=== PATIENT | female | born 1995 | race Caucasian/White ===

== ENCOUNTER → 2019-10-15 16:42 | Outpatient (CLI) | payer OTHER, SELFPAY ==
--- NOTE | 2019-10-15 | DI.US.S_ITS ---
PROCEDURE: US OB <= 14 WEEKS FETUS INDICATIONS: INITIAL SIZING AND DATING OUTSIDE/PRIOR DATING DATA: Last menstrual period (LMP): 08/19/19. LMP-based estimated date of delivery (SHANEKA): 05/25/20. First dating scan (date and location): 10/15/19. Estimated date of delivery (SHANEKA) from first dating scan: 05/25/20. TECHNIQUE: Real-time scanning was performed of the fetus and maternal pelvic organs, with image documentation. Endovaginal scanning was also performed to better visualize the fetus and maternal ovaries. COMPARISON: None. FINDINGS: Embryo: Single living intrauterine fetus is present with a crown-rump length measuring 1.7 cm, 8 weeks one day. heart rate measures 173 beats per minute. Yolk sac visualized Measurement variability in dating: +/- 4 weeks by LMP, +/- 7 days by mean sac diameter (use before 6 weeks gestation if crown-rump length not able to be measured), +/- 5 days by crown-rump length (up to 8 weeks 6 days gestation), +/- 7 days by crown-rump length (up to 13 weeks 6 days gestation). Maternal organs: Ovaries unremarkable bilaterally. Limited images through the kidneys demonstrate no hydronephrosis. IMPRESSION: Single living intrauterine fetus with gestational age measuring 8 weeks one day corresponding to an SHANEKA of 05/25/20. Dictated by: Saúl Quan M.D. on 10/15/2019 at 18:39 Approved by: Saúl Quan M.D. on 10/15/2019 at 18:41
== END ==
PROVIDERS: Referring Provider Family Medicine; Visit Provider Family Medicine
DX: Z34.91 Encounter for supervision of normal pregnancy, unspecified, first trimester (principal); Z3A.08 8 weeks gestation of pregnancy
CPT/HCPCS: 76801

== ENCOUNTER → 2020-01-12 14:37 | Outpatient (CLI) | payer OTHER, SELFPAY ==
--- NOTE | 2020-01-12 | DI.US.S_ITS ---
PROCEDURE: US OB >= 14 WEEKS FETUS INDICATIONS: ANATOMY SCAN OUTSIDE/PRIOR DATING DATA: Last menstrual period (LMP): 08/19/2019. LMP-based estimated date of delivery (SHANEKA): 05/25/2020 . First dating scan (date and location): 10/15/2019 . Estimated date of delivery (SHANEKA) from first dating scan: 05/25/2020 . TECHNIQUE: Real-time scanning was performed of the fetus, with image documentation and biometric measurements. Endovaginal scanning: No COMPARISON: [facility], OB <= 14 WEEKS FETUS, 10/15/2019, 16:58. FINDINGS: General: A single living intrauterine gestation is present. Presentation: Vertex. Placenta: Placental position is posterior , without previa. Amniotic fluid index: 9.3 cm cm, normal range is 5-24 cm. heart rate: 153 beats per minute. Maternal cervical canal: 4.6 cm long. Normal lower limit is 2.5 cm. biometrics: Biparietal diameter: 21 weeks 1 day Head circumference: 21 weeks Abdominal circumference: 22 weeks 2 days Femur length: 21 weeks 4 days Estimated gestational age from initial scan: 20 weeks 6 days Composite gestational age from present scan: 21 weeks 4 days Estimated weight and percentile: 455 g; 91st percentile Measurement variability for biometric dating: +/- 7 days from 14 weeks to 15 weeks 6 days gestation, +/- 10 days from 16 weeks to 21 weeks 6 days gestation, +/- 2 weeks from 22 weeks to 27 weeks 6 days gestation, +/- 3 weeks for 28 weeks gestation or later. weight reference: 4500 g or EFW >90/95% is considered macrosomia or large for gestational age. EFW <10% is small for gestational age. EFW 5% or less is considered intra-uterine growth restriction. Anatomic survey: Neuro: Ventricles are non-dilated at less than 10 mm. Cisterna magna is normal at 3-11 mm. Cerebellum is normal in size and morphology. Nuchal skin fold: Normal at less than 6 mm between 14-21 weeks gestational age. Face: Nose and lips, facial profile are normal. Spine: No evidence for spina bifida. Heart: 4-chambered heart is present, with normal ventricular outflow tracts. Diaphragm: Diaphragm is intact. Stomach: Left-sided stomach is present. Kidneys: No hydronephrosis. Normal is less than 5 mm in 2nd trimester, less than 7 mm in 3rd trimester. Cord: 3-vessel cord has orthotopic insertion. Bladder: Normal in size. Extremities: All 4 extremities identified. IMPRESSION: 1. Single living IUP redemonstrated and interval growth is upper limits of normal. 2. Normal anatomic survey. Dictated by: Gen Boland [facility] Interpreted: Avery Lassiter MD on 01/12/2020 at 16:06 Approved by: Avery Lassiter M.D. on 01/12/2020 at 16:24
== END ==
PROVIDERS: Referring Provider Student in an Organized Health Care Education/Training Program; Visit Provider Student in an Organized Health Care Education/Training Program
DX: Z36.89 Encounter for other specified antenatal screening (principal); Z3A.21 21 weeks gestation of pregnancy
CPT/HCPCS: 76811

== ENCOUNTER → 2020-04-27 17:42 | Outpatient (ROUT) | payer OTHER, SELFPAY | PROVIDERS: Visit Provider Student in an Organized Health Care Education/Training Program | DX: Z34.00 Encounter for supervision of normal first pregnancy, unspecified trimester (principal) | CPT/HCPCS: 87081 ==

== ENCOUNTER → 2020-05-03 15:44 | Outpatient (CLI) | payer OTHER, SELFPAY ==
--- NOTE | 2020-05-03 | DI.US.S_ITS ---
PROCEDURE: US OB LIMITED INDICATIONS: GROWTH OUTSIDE/PRIOR DATING DATA: Last menstrual period (LMP): 08/19/2019. LMP-based estimated date of delivery (SHANEKA): 05/25/2020 . First dating scan (date and location): 10/15/2019 . Estimated date of delivery (SHANEKA) from first dating scan: 05/25/2020 . TECHNIQUE: Real-time scanning was performed of the fetus, with image documentation and biometric measurements. Endovaginal scanning: No COMPARISON: [facility], OB >= 14 WEEKS FETUS, 01/12/2020, 15:01. FINDINGS: General: A single living intrauterine gestation is present. Presentation: Vertex. Placenta: Placental position is posterior , without previa. Amniotic fluid index: 12.4 cm, normal range is 5-24 cm. heart rate: 145 beats per minute. Maternal cervical canal: 5.4 cm long. Normal lower limit is 2.5 cm. biometrics: Biparietal diameter: 37 weeks 5 days Head circumference: 38 weeks 1 day Abdominal circumference: 36 weeks 3 days Femur length: 36 weeks 4 days Estimated gestational age from initial scan: 36 weeks 6 days Composite gestational age from present scan: 37 weeks 2 days Estimated weight and percentile: 3044 g; 55th percentile Measurement variability for biometric dating: +/- 7 days from 14 weeks to 15 weeks 6 days gestation, +/- 10 days from 16 weeks to 21 weeks 6 days gestation, +/- 2 weeks from 22 weeks to 27 weeks 6 days gestation, +/- 3 weeks for 28 weeks gestation or later. weight reference: 4500 g or EFW >90/95% is considered macrosomia or large for gestational age. EFW <10% is small for gestational age. EFW 5% or less is considered intra-uterine growth restriction. Other: Not applicable. IMPRESSION: Single living IUP redemonstrated and interval growth is normal. Dictated by: Gen BETANCUR Interpreted: Janessa Velasquez MD on 05/03/2020 at 16:56 Approved by: Janessa Velasquez M.D. on 05/05/2020 at 9:15
[2020-05-03 16:22] LABS: Add Manual Diff / Slide Review NO; Basophils Absolute Auto 0 /uL (0-100); Basophils Percent Auto 0.2 % (0-2); Eosinophils Absolute Auto 100 /uL (0-450); Eosinophils Percent Auto 0.8 % (2-4); Hemoglobin 12.9 g/dL (12.0-16.0); Lymphocytes Absolute Auto 2200 /uL (1100-4500); Lymphocytes Percent Auto 20.4 % (25-40); Mean Corpuscular HGB Conc 32.9 % (30-36); Mean Corpuscular Hemoglobin 28.3 PG (26-34); Monocytes Absolute Auto 1000 /uL (0-900); Monocytes Percent Auto 9.1 % (3-14); Neutrophils Absolute Auto 7400 /uL (1500-7000); Neutrophils Percent Auto 69.5 % (50-75); Platelet Count 256 X10^3/uL (150-400); Red Blood Cell Count 4.54 X10^6/uL (4.0-5.2); Red Cell Distribution Width 14.4 % (11.6-14.8); White Blood Cell Count 10.7 X10^3/uL (4.5-11.0)
== END ==
PROVIDERS: PCP Student in an Organized Health Care Education/Training Program; Referring Provider Student in an Organized Health Care Education/Training Program; Visit Provider Student in an Organized Health Care Education/Training Program
DX: Z34.03 Encounter for supervision of normal first pregnancy, third trimester (principal); Z3A.37 37 weeks gestation of pregnancy
CPT/HCPCS: 36415; 76815; 85025

== ENCOUNTER 2020-05-09 18:53 | Outpatient (CLI) | payer OTHER, SELFPAY ==
--- NOTE | 2020-05-09 19:11 | DI.US.S_ITS ---
PROCEDURE: US OB BIOPHYSICAL PROFILE INDICATIONS: PRE-ECLAMPSIA OUTSIDE/PRIOR DATING DATA: Last menstrual period (LMP): 08/19/2019 . LMP-based estimated date of delivery (SHANEKA): 05/25/2020 . First dating scan (date and location): 10/15/2019 . Estimated date of delivery (SHANEKA) from first dating scan: 05/25/2020 . TECHNIQUE: Real-time scanning was performed of the fetus, with image documentation and biometric measurements. Biophysical profile was also obtained. COMPARISON: [facility], OB LIMITED, 05/03/2020, 16:16. [facility] OB >= 14 WEEKS FETUS, 01/12/2020, 15:01. [facility] OB <= 14 WEEKS FETUS, 10/15/2019, 16:58. FINDINGS: General: A single living intrauterine gestation is present. Presentation: Vertex. Placenta: Placental position is posterior , without previa. Amniotic fluid index: 15.4 cm, normal range is 5-24 cm. heart rate: 140 beats per minute. Maternal cervical canal: Not assessed biometrics: Estimated gestational age from initial scan: 37 weeks 5 days Biophysical profile: Tone: 2 points. Movement: 2 points. Respiration: 2 points. Largest pocket of fluid: 2 points. IMPRESSION: 1. Single live intrauterine with ultrasound gestational age of 37 weeks 5 days. 2. BPP 12/31 Dictated by: Rachel Leary M.D. on 05/09/2020 at 20:19 Approved by: Rachel Leary M.D. on 05/09/2020 at 20:21
[2020-05-09 19:37] LABS: Add Manual Diff / Slide Review NO; Basophils Absolute Auto 100 /uL (0-100); Basophils Percent Auto 0.6 % (0-2); Eosinophils Absolute Auto 100 /uL (0-450); Hematocrit 37.8 % (36-46); Hemoglobin 12.4 g/dL (12.0-16.0); Lymphocytes Absolute Auto 2400 /uL (1100-4500); Mean Corpuscular HGB Conc 32.8 % (30-36); Mean Corpuscular Hemoglobin 28.1 PG (26-34); Mean Corpuscular Volume 85.6 fL (80-100); Monocytes Absolute Auto 800 /uL (0-900); Monocytes Percent Auto 6.7 % (3-14); Neutrophils Absolute Auto 8000 /uL (1500-7000); Neutrophils Percent Auto 70.7 % (50-75); Platelet Count 276 X10^3/uL (150-400); Red Blood Cell Count 4.42 X10^6/uL (4.0-5.2); Red Cell Distribution Width 14.6 % (11.6-14.8); White Blood Cell Count 11.4 X10^3/uL (4.5-11.0)
[2020-05-09 19:48] LABS: Alanine Aminotransferase 13 IU/L (<35); Albumin 3.6 g/dL (3.5-5.0); Albumin Globulin Ratio 1.1 (1.0-2.8); Alkaline Phosphatase 176 U/L (38-126); Aspartate Aminotransferase 21 IU/L (14-36); Bilirubin Total 0.2 mg/dL (0.2-1.3); Blood Urea Nitrogen 13 mg/dL (7-17); Calcium 9.5 mg/dL (8.4-10.2); Carbon Dioxide 20 mmol/L (22-32); Chloride 106 mmol/L (98-107); Estimated Glomerular Filt Rate > 60.0 mL/min (>60); Globulin 3.2 g/dL (1.7-4.1); Glucose 112 mg/dL (70-100); HEMOLYSIS < 15 (0-50); Potassium 3.7 mmol/L (3.4-5.1); Sodium 135 mmol/L (137-145); Total Protein 6.8 g/dL (6.3-8.2); Uric Acid 5.2 mg/dL (2.5-6.2)
== END 2020-05-09 20:46 | disposition home or self-care (01) ==
LOC: OB 05-16 09:39
PROVIDERS: PCP Student in an Organized Health Care Education/Training Program; Referring Provider Student in an Organized Health Care Education/Training Program; Visit Provider Student in an Organized Health Care Education/Training Program
DX: O26.893 Other specified pregnancy related conditions, third trimester (principal); R42 Dizziness and giddiness; H53.8 Other visual disturbances; R03.0 Elevated blood-pressure reading, without diagnosis of hypertension; Z3A.37 37 weeks gestation of pregnancy
CPT/HCPCS: 36415; 59050; 76819; 80053; 82565; 84520; 84550; 85025; G0378; G0379

== ENCOUNTER 2020-05-15 12:17 | Outpatient (CLI) | payer OTHER, SELFPAY | END 2020-05-15 13:20 | disposition home or self-care (01) | LOC: LABOR 13:09 → OB 05-16 09:11 | PROVIDERS: PCP Student in an Organized Health Care Education/Training Program; Referring Provider Family Medicine; Visit Provider Family Medicine | DX: O26.893 Other specified pregnancy related conditions, third trimester (principal); R03.0 Elevated blood-pressure reading, without diagnosis of hypertension; Z3A.38 38 weeks gestation of pregnancy | CPT/HCPCS: 59025; G0378; G0379 ==

== ENCOUNTER → 2020-05-18 10:58 | Outpatient (CLI) | payer OTHER, SELFPAY ==
--- NOTE | 2020-05-18 | DI.US.S_ITS ---
PROCEDURE: US OB BIOPHYSICAL PROFILE INDICATIONS: OSVALDO OUTSIDE/PRIOR DATING DATA: Last menstrual period (LMP): 08/19/19. LMP-based estimated date of delivery (SHANEKA): 05/25/20 . First dating scan (date and location): 10/15/19 . Estimated date of delivery (SHANEKA) from first dating scan: 05/25/20 . TECHNIQUE: Real-time scanning was performed of the fetus for biophysical profile, with image documentation. Color and pulse Doppler interrogation was also performed of the umbilical artery near its insertion into the placenta. Endovaginal scanning: Not needed COMPARISON: [facility], OB BIOPHYSICAL PROFILE, 05/09/2020, 19:41. FINDINGS: General: A single living intrauterine gestation is present. Presentation: Vertex. Placenta: Placental position is posterior left. , without previa. Amniotic fluid index: 16.9 cm, normal range is 5-24 cm. heart rate: 158 beats per minute. Maternal cervical canal: Not visualized due to deep vertex presentation. Estimated gestational age from initial scan: 39 weeks 0 days . Biophysical profile: Tone: 2 points. Movement: 2 points. Respiration: 2 points. Largest pocket of fluid: To points. IMPRESSION: Normal amniotic fluid volume, normal biophysical profile. Delivery date is projected to be centered on 05/25/20. Vertex presentation. Dictated by: Jasmeet Reagan M.D. on 05/18/2020 at 12:33 Approved by: Jasmeet Reagan M.D. on 05/18/2020 at 12:35
[2020-05-18 11:17] LABS: Add Manual Diff / Slide Review NO; Basophils Absolute Auto 0 /uL (0-100); Basophils Percent Auto 0.4 % (0-2); Eosinophils Absolute Auto 100 /uL (0-450); Hematocrit 39.7 % (36-46); Hemoglobin 12.9 g/dL (12.0-16.0); Lymphocytes Absolute Auto 2200 /uL (1100-4500); Lymphocytes Percent Auto 19.9 % (25-40); Mean Corpuscular HGB Conc 32.5 % (30-36); Mean Corpuscular Hemoglobin 28.1 PG (26-34); Mean Corpuscular Volume 86.5 fL (80-100); Monocytes Absolute Auto 1000 /uL (0-900); Monocytes Percent Auto 8.7 % (3-14); Neutrophils Absolute Auto 7700 /uL (1500-7000); Platelet Count 240 X10^3/uL (150-400); Red Blood Cell Count 4.59 X10^6/uL (4.0-5.2)
[2020-05-18 11:29] LABS: Alanine Aminotransferase 11 IU/L (<35); Albumin 3.4 g/dL (3.5-5.0); Albumin Globulin Ratio 1.1 (1.0-2.8); Alkaline Phosphatase 195 U/L (38-126); Aspartate Aminotransferase 18 IU/L (14-36); BUN Creatinine Ratio 17.3 (6-22); Bilirubin Total 0.1 mg/dL (0.2-1.3); Blood Urea Nitrogen 14 mg/dL (7-17); Calcium 9.5 mg/dL (8.4-10.2); Carbon Dioxide 20 mmol/L (22-32); Chloride 109 mmol/L (98-107); Estimated Glomerular Filt Rate > 60.0 mL/min (>60); Glucose 98 mg/dL (70-100); HEMOLYSIS < 15 (0-50); Sodium 135 mmol/L (137-145); Total Protein 6.4 g/dL (6.3-8.2); Uric Acid 6.3 mg/dL (2.5-6.2)
[2020-05-18 15:21] LABS: Creatinine Urine Random 104.9 mg/dL; Protein (Total) Urine Random 14 mg/dL (0-12); Protein Creatinine Ratio Urine 0.13 GRAM/24H
== END ==
PROVIDERS: PCP Student in an Organized Health Care Education/Training Program; Referring Provider Student in an Organized Health Care Education/Training Program; Visit Provider Student in an Organized Health Care Education/Training Program
DX: Z34.93 Encounter for supervision of normal pregnancy, unspecified, third trimester (principal); Z3A.39 39 weeks gestation of pregnancy
CPT/HCPCS: 76819; 80053; 82570; 84156; 84550; 85025

== ENCOUNTER 2020-05-18 11:38 | Outpatient (CLI) | payer OTHER, SELFPAY | END 2020-05-18 13:10 | disposition home or self-care (01) | LOC: LABOR 12:26 → OB 05-22 12:04 | PROVIDERS: PCP Student in an Organized Health Care Education/Training Program; Referring Provider Student in an Organized Health Care Education/Training Program; Visit Provider Student in an Organized Health Care Education/Training Program | DX: O26.893 Other specified pregnancy related conditions, third trimester (principal); R03.0 Elevated blood-pressure reading, without diagnosis of hypertension; Z3A.39 39 weeks gestation of pregnancy | CPT/HCPCS: 59025; 59050; 76819; 80053; 82570; 84156; 84550; 85025; G0378; G0379 ==

== ENCOUNTER 2020-05-22 19:13 | Inpatient (IN) | payer OTHER, SELFPAY ==
[2020-05-22 19:43] VITALS: BP 132/83
[2020-05-22 20:05] LABS: Add Manual Diff / Slide Review NO; Basophils Absolute Auto 0 /uL (0-100); Basophils Percent Auto 0.4 % (0-2); Eosinophils Absolute Auto 100 /uL (0-450); Hematocrit 40.3 % (36-46); Lymphocytes Absolute Auto 2100 /uL (1100-4500); Lymphocytes Percent Auto 18.5 % (25-40); Mean Corpuscular HGB Conc 32.3 % (30-36); Mean Corpuscular Hemoglobin 27.9 PG (26-34); Mean Corpuscular Volume 86.6 fL (80-100); Monocytes Absolute Auto 900 /uL (0-900); Monocytes Percent Auto 7.7 % (3-14); Neutrophils Absolute Auto 8000 /uL (1500-7000); Neutrophils Percent Auto 72.4 % (50-75); Platelet Count 253 X10^3/uL (150-400); Red Blood Cell Count 4.65 X10^6/uL (4.0-5.2); Red Cell Distribution Width 15.2 % (11.6-14.8); White Blood Cell Count 11.1 X10^3/uL (4.5-11.0)
[2020-05-22 20:22] LABS: Alanine Aminotransferase 10 IU/L (<35); Albumin 3.7 g/dL (3.5-5.0); Albumin Globulin Ratio 1.1 (1.0-2.8); Alkaline Phosphatase 206 U/L (38-126); Aspartate Aminotransferase 17 IU/L (14-36); BUN Creatinine Ratio 16.3 (6-22); Bilirubin Total 0.1 mg/dL (0.2-1.3); Blood Urea Nitrogen 13 mg/dL (7-17); Calcium 9.3 mg/dL (8.4-10.2); Carbon Dioxide 26 mmol/L (22-32); Chloride 104 mmol/L (98-107); Estimated Glomerular Filt Rate > 60.0 mL/min (>60); Globulin 3.5 g/dL (1.7-4.1); Glucose 104 mg/dL (70-100); HEMOLYSIS < 15 (0-50); Potassium 3.8 mmol/L (3.4-5.1); Sodium 134 mmol/L (137-145); Total Protein 7.2 g/dL (6.3-8.2); Uric Acid 6.3 mg/dL (2.5-6.2)
[2020-05-22 20:27] LABS: COVID19 -Nasal RAPID Negative (Negative)
[2020-05-22] MEDS: miSOPROStoL 25 MCG TABLET 50 MCG PO (20:28)
[2020-05-22 20:29] LABS: Creatinine Urine Random 82.2 mg/dL; Protein (Total) Urine Random 14 mg/dL (0-12); Protein Creatinine Ratio Urine 0.17 GRAM/24H
[2020-05-22] MEDS: CALCIUM CARBONATE 500 MG TAB PO (22:07)
[2020-05-23] MEDS: miSOPROStoL 25 MCG TABLET 50 MCG PO (00:29)
[2020-05-23] MEDS: ZOLPIDEM 5 MG TABLET PO (00:33)
[2020-05-23] MEDS: LACTATED RINGERS 1,000 ML 100 ML IV (04:25)
[2020-05-23] MEDS: fentaNYL 100 MCG/2 ML INJ IV (04:30)
--- NOTE | 2020-05-23 06:21 | PM.OBHP.1 ---
OB HPI Date/Time Date of admission: 05/22/20 Date Patient Seen: 05/23/20 Time Patient Seen: 06:21 History of Present Condition Chief complaint: Induction Narrative: Danielle Harrison is a 25 year old female at 39w5d with SHANEKA of 05/25/20 per first trimester ultrasound. She presents for induction of labor secondary to gestational hypertension. Her course has been complicated by: 1. Nausea and vomiting that led to a 25 lb weight loss in the first 16 weeks. During the 2nd trimester her nausea completely resolved and by the 3rd trimester, she has had a rapid weight gain, putting on a total of 46.6 pounds, mostly in the last 11 weeks. Estimated weight at 36w6d was 3044 g, 55th percentile. 1 hour Glucola at 28 weeks was 100. 2. Gestational hypertension with a risk for preeclampsia starting at 37w5d, she has been followed closely and BPP and PIH labs x2 were reassuring. She did have a mild elevation in her uric acid at 6.3 but her protein to creatinine ratio was 0.17 at both checks in the last week. She denies headache, nausea, vomiting, right upper quadrant pain, or visual changes. She does have mild edema in her bilateral lower ankles, 1+ non-pitting. 3. Chronic depression with a risk for depression. Plan is to start SSRI after delivery if needed. LABS/IMAGING: ABO 0 positive, antibody negative on 10/29/2019. Rubella immune. Hepatitis-B surface antigen negative. HIV, HSV 1 and 2 negative. GC/chlamydia negative. Treponemal antibody negative. Varicella titer positive. Pap smear plus HPV DNA negative on 11/01/2019. Urine culture negative on 12/15/2019. Hemoglobin/hematocrit 13.6/39.4 on 10/29/2019. Repeat hemoglobin/hematocrit 13.0/40.3 on 05/22/2020. TSH within normal limits. 1 hour Glucola negative on 03/02/2020. GBS negative on 04/27/2020. NIPT negative, female. Dating US: 10/15/2019, 8w1d, SHANEKA 05/25/20 Anatomy Scan: 01/12/2028, 20w6d, normal, estimated weight 91st percentile Growth Scan: 05/03/20, 36w6d, 3044 g, 55th percentile BPP: 05/09/20, 37w5d, 12/31 BPP: 05/18/20, 39w0d, 12/31 OBSTETRIC HISTORY: GYNECOLOGICAL HISTORY: None PAST MEDICAL HISTORY: Depression PAST SURGICAL HISTORY: None FAMILY HISTORY: Parents are healthy. Sister has cerebral palsy, diagnosed in 2001, seizures. SOCIAL HISTORY: Engaged to Gallito Oliva, father of the baby, involved and supportive. She works at a dairy farm. Nonsmoker. No illicit drug use. No alcohol use during . Evaluation Evaluation Laboratory results: Laboratory Tests 05/22/20 05/22/20 05/22/20 19:00 19:15 19:56 WBC 11.1 H RBC 4.65 Hgb 13.0 Hct 40.3 MCV 86.6 MCH 27.9 MCHC 32.3 RDW 15.2 H Plt Count 253 Neut % (Auto) 72.4 Lymph % (Auto) 18.5 L [place] % (Auto) 7.7 Eos % (Auto) 1.0 L Baso % (Auto) 0.4 Neut # (Auto) 8000 H Lymph # (Auto) 2100 [place] # (Auto) 900 Eos # (Auto) 100 Baso # (Auto) 0 Sodium Potassium Chloride Carbon Dioxide BUN Creatinine Estimated GFR BUN/Creatinine Ratio Glucose Uric Acid Calcium Total Bilirubin AST ALT Alkaline Phosphatase Total Protein Albumin Globulin Albumin/Globulin Ratio U Random Total Protein 14 H Urine Creatinine 82.2 Protein/Creatinin Ratio 0.17 COVID-19 PCR Negative Blood Type Antibody Screen 05/22/20 05/22/20 19:56 19:56 WBC RBC Hgb Hct MCV MCH MCHC RDW Plt Count Neut % (Auto) Lymph % (Auto) [place] % (Auto) Eos % (Auto) Baso % (Auto) Neut # (Auto) Lymph # (Auto) [place] # (Auto) Eos # (Auto) Baso # (Auto) Sodium 134 L Potassium 3.8 Chloride 104 Carbon Dioxide 26 BUN 13 Creatinine 0.80 Estimated GFR > 60.0 BUN/Creatinine Ratio 16.3 Glucose 104 H Uric Acid 6.3 H Calcium 9.3 Total Bilirubin 0.1 L AST 17 ALT 10 Alkaline Phosphatase 206 H Total Protein 7.2 Albumin 3.7 Globulin 3.5 Albumin/Globulin Ratio 1.1 U Random Total Protein Urine Creatinine Protein/Creatinin Ratio COVID-19 PCR Blood Type O Positive Antibody Screen Negative PFSH Social History Smoking Status: Never smoker Meds Home Medications and Allergies Allergies Allergy/AdvReac Type Severity Reaction Status Date / Time acetaminophen [From Tylenol] Allergy Verified 05/22/20 20:18 Review of Systems Review of Systems ROS: Yes All systems reviewed with the patient and are negative except as otherwise documented Exam Narrative Exam Narrative: General: NAD Skin: Color unremarkable, no rash nor lesions HEENT: Neck supple with midline trachea Lungs: CTAB Heart: Normal rate, and regular rhythm, S1, S2 normal, no murmur, click, rub or gallop Abdomen: Gravid, soft, non-tender Extremities: 1+ non-pitting edema in bilateral ankles, no clubbing or cyanosis Pelvis: Normal female external genitalia Presentation: vertex Cervix: 10/100/+1, AROM, light meconium Monitoring: Variability: Moderate Baseline: 140s Accelerations: Present Decelerations: Absent Contractions: Every 2 minutes Strength: Moderate Objective Labs Result Diagrams: 05/22/20 19:56 05/22/20 19:56 Labs: Laboratory Results - last 24 hr 05/22/20 05/22/20 05/22/20 19:00 19:15 19:56 WBC 11.1 H RBC 4.65 Hgb 13.0 Hct 40.3 MCV 86.6 MCH 27.9 MCHC 32.3 RDW 15.2 H Plt Count 253 Neut % (Auto) 72.4 Lymph % (Auto) 18.5 L [place] % (Auto) 7.7 Eos % (Auto) 1.0 L Baso % (Auto) 0.4 Neut # (Auto) 8000 H Lymph # (Auto) 2100 [place] # (Auto) 900 Eos # (Auto) 100 Baso # (Auto) 0 Sodium Potassium Chloride Carbon Dioxide BUN Creatinine Estimated GFR BUN/Creatinine Ratio Glucose Uric Acid Calcium Total Bilirubin AST ALT Alkaline Phosphatase Total Protein Albumin Globulin Albumin/Globulin Ratio U Random Total Protein 14 H Urine Creatinine 82.2 Protein/Creatinin Ratio 0.17 COVID-19 PCR Negative Blood Type Antibody Screen 05/22/20 05/22/20 19:56 19:56 WBC RBC Hgb Hct MCV MCH MCHC RDW Plt Count Neut % (Auto) Lymph % (Auto) [place] % (Auto) Eos % (Auto) Baso % (Auto) Neut # (Auto) Lymph # (Auto) [place] # (Auto) Eos # (Auto) Baso # (Auto) Sodium 134 L Potassium 3.8 Chloride 104 Carbon Dioxide 26 BUN 13 Creatinine 0.80 Estimated GFR > 60.0 BUN/Creatinine Ratio 16.3 Glucose 104 H Uric Acid 6.3 H Calcium 9.3 Total Bilirubin 0.1 L AST 17 ALT 10 Alkaline Phosphatase 206 H Total Protein 7.2 Albumin 3.7 Globulin 3.5 Albumin/Globulin Ratio 1.1 U Random Total Protein Urine Creatinine Protein/Creatinin Ratio COVID-19 PCR Blood Type O Positive Antibody Screen Negative Assessment and Plan Assessment and Plan Assessment and Plan narrative: 1. IUP at 39w5d 2. 3. Gestational hypertension 4. Chronic depression 5. Active labor Plan: Admission for induction of labor with routine orders. Has been on cytotec overnight, 2 doses, has since been ami on her own, now complete. Anticipate vaginal delivery. Questions answered, appropriate consents will be signed.
[2020-05-23] MEDS: ONDANSETRON 4 MG/2 ML INJ IV (07:00)
[2020-05-23] MEDS: OXYTOCIN PREMIX 30 UNIT/500 ML PLAST..BAG IV (08:34)
[2020-05-23 09:44] VITALS: BP 128/78; PULSE 70; RESP 16; TEMP 37
--- NOTE | 2020-05-23 10:32 | PM.OBPRVD ---
Events: Induced HTN and Labor Induction Labor & Delivery Delivery date: 05/23/20 Cervical ripening method: per misoprostal protocol Delivery augmentation: rupture of membranes (thin meconium) and pitocin Delivery monitor: external FHT Route of delivery: L&D Laceration Description: Perineal - 2nd Degree Delivery repair: vicryl (3.0, usual fashion) Estimated blood loss (mL): 250 Anesthesia Type: Epidural Complications: None Narrative: On 05/22/20, this 25 year old , GBS negative female, was admitted overnight for cervical ripening and progressed quickly to complete after just 2 doses of Cytotec. On 05/23/20, under epidural anesthesia, she delivered a viable female infant with unknown weight and scores of 9/9. Delivery was via normal spontaneous vaginal delivery at 9:42 a.m. Pitocin was used during the 2nd stage of labor for augmentation of contractions. A loose Nuchal cord x 1 was reduced. Cord clamped and cut and infant handed to mother. Cord blood sent for analysis. Intact placenta with three-vessel cord was delivered spontaneously at 10:10 a.m.. IV Pitocin administered in bolus dose. Uterus, cervix, vagina, and rectum explored and found to be intact except for a second-degree perineal laceration that was repaired with 3-0 Vicryl in the usual fashion. Estimated blood loss 250 cc. Patient remained in the delivery room in stable condition. Infant remained in the delivery room in stable condition. Plan for aftercare: Routine care.
[2020-05-23] MEDS: DERMOPLAST SPRAY 20% 60 ML 1 SPRAY TOP (14:42)
[2020-05-23] MEDS: KETOROLAC 30 MG/ML VIAL IV ×2 (14:52→20:58)
[2020-05-24] MEDS: KETOROLAC 30 MG/ML VIAL IV (03:01)
[2020-05-24 07:14] LABS: Hematocrit 33.8 % (36-46); Hemoglobin 11.1 g/dL (12.0-16.0)
--- NOTE | 2020-05-24 13:29 | P.DS_ITS ---
Discharge Providers Provider Date of admission: 05/22/20 19:13 Discharge Date: 05/24/20 Primary care physician: Gaby Torres MD Consults: 05/24/20 10:35 Consult to [employer] Routine Comment: Discharge provider: Gaby Torres MD Summary Hospital Course Date Patient Seen: 05/24/20 Time Patient Seen: 13:52 Procedures: 1. at 39w5d, Gaby Torres MD, no complications 2. Epidural at 39wd, Roseline Huerta MD, no complications Hospital Course: Unremarkable. Mother is with nipple shield. Tolerating full diet with no nausea vomiting. Ambulating well. Lochia less than menses. On day of discharge, she is afebrile with stable vital signs throughout. Discharge diagnoses: 1. 25 yo 2. Status post at 39w5d 3. Gestational hypertension, resolved 4. Chronic depression Status at Discharge Cognitive/behavioral status at discharge: at baseline, oriented Overall status at discharge: patient is progressing back to baseline Time Spent with Patient Time attestation: Total time spent providing and/or coordinating discharge services: 35 Objective Labs Result Diagrams: 05/24/20 07:05 05/22/20 19:56 Labs: Laboratory Results - last 24 hr 05/24/20 07:05 Hgb 11.1 L Hct 33.8 L Exam Narrative Exam Narrative: General: NAD Skin: Color unremarkable, no rash nor lesions HEENT: Neck supple with midline trachea Lungs: CTAB Heart: Normal rate and regular rhythm, S1, S2 normal, no murmurs, click, rub or gallop Abdomen: FF, U-1, soft, non-tender, +BS Extremities: No edema, no cyanosis Discharge Plan Discharge Plan Patient Disposition: Home Discharge orders & Medications Prescriptions: New ibuprofen 600 mg Tablet 600 mg PO Q6HR PRN (Reason: Pain, Mild (1-3)) 30 Days Qty: 45 RF: 2 Prenatabs Rx 29 mg iron- 1 mg Tablet 1 tab PO DAILY Qty: 90 RF: 3 No Action No Known Home Medications RF: 0 Follow up/Referrals: Gaby Torres MD [Primary Care Provider] - (Appointment Wednesday, May 31; check in time 10:00 AM.) Diet/Activity/Treatments Diet: Diet as Tolerated Activity: 1. Routine care 2. No driving for 2 weeks. 3. Call or return for uncontrolled pain, fever, intractable nausea or vomiting, trouble with urination, heavy vaginal bleeding greater than 1 pad per hour, suicidal/homicidal thoughts, signs or symptoms of infection, or any other concerns. Skin/Wound/Dressing Care Report to your healthcare provider any signs of infection, such as:: chills, fever and increased pain Visit Report/Discharge Packet Instructions: DI for Labor and Delivery, Vaginal Discharge Data Primary Care Provider: Gaby Torres
== END 2020-05-24 14:50 | disposition home or self-care (01) | DRG 807 ==
PROVIDERS: Admitting Provider Student in an Organized Health Care Education/Training Program; PCP Student in an Organized Health Care Education/Training Program; Referring Provider Student in an Organized Health Care Education/Training Program; Visit Provider Student in an Organized Health Care Education/Training Program
DX: O13.4 Gestational [pregnancy-induced] hypertension without significant proteinuria, complicating childbirth (principal); Z37.0 Single live birth; O70.1 Second degree perineal laceration during delivery; O77.0 Labor and delivery complicated by meconium in amniotic fluid; O69.81X0 Labor and delivery complicated by cord around neck, without compression, not applicable or unspecified; Z3A.39 39 weeks gestation of pregnancy; F32.9 Major depressive disorder, single episode, unspecified; Z20.828 Contact with and (suspected) exposure to other viral communicable diseases
CPT/HCPCS: 01967; 36415; 59050; 59200; 80053; 82570; 84156; 84550; 85014; 85018; 85025; 86850; 86900; 86901; 87635; G0379; J1885; J2405; J2590; J3010